=== PATIENT | female | born 1980 | race Caucasian/White ===

== ENCOUNTER → 2017-02-14 14:30 | Observation (INO) ==
--- NOTE | 2017-02-14 12:23 | OB/GYN History & Physical ---
Date of Encounter: 02/14/17 Time of Encounter: 12:21 Assessment and Plan (1) 36 weeks gestation of Current visit: Yes Status: Acute Admit for monitoring and evaluation (2) Single umbilical artery Current visit: Yes Status: Acute Patient is getting weekly NST's (3) Advanced maternal age (AMA) in Current visit: Yes Status: Acute Routine care (4) Hematuria Current visit: Yes Status: Acute Catheter urine specimen obtained Pt denies history of kidney stones No CVA tenderness on exam. Qualifiers: Hematuria type: gross Qualified Code(s): R31.0 - Gross hematuria History of Present Illness Chief complaint: 36w1d sent from office for bleeding HPI: Ms. Roblero is a 36 year old female Past Med Surg Social Fam HX - Past Medical History Medical history: other Psychiatric history: no psych history - Past Surgical History Surgical History: - Social History Smoking Status: Never smoker Smokeless Tobacco Status: No Alcohol use: none Drug use: none - Family History Mother Living Status: Still Living Hx Family Cardiac Disorders: No Hx Family Respiratory Disorders: No Hx Family Cancer: No Hx Family GI Disorders: No Hx Family Genitourinary Disorders: No Hx Family Endocrine Disorder: No Hx Family Musculoskeletal Disorders: No Hx Family Neuromuscular Disorders: No Hx Family Neurologic Disorders: No Hx Family HEENT Disorders: No Hx Family Autoimmune Disorders: No Hx Family Reproductive Disorders: No Hx Family Psychosocial Disorders: No Hx Family Medical Disorders: No Obstetrical History - Pregnancies : 4 Para: 3 Term: 3 : 0 Ab's: 0 Livin Medications and Allergies Fexofenadine/Pseudoephedrine [Melanie-D 12 Hour Tablet] 1 each PO DAILY [History] Vit Calc,Iron,Folic [ Vitamins] 1 tab PO DAILY 02/14/17 [ History] Exam - Constitutional Constitutional: well developed, well nourished, no acute distress - Neck Neck exam: full ROM, normal inspection - Lungs Respiratory exam: CTAB - Cardiovascular Cardiovascular exam: RRR, +S1, +S2 - Abdomen Abdomen: Present: bowel sounds normal, gravid, non tender - Extremities Extremities exam: full ROM, normal capillary refill, normal inspection - Vulva Vulva: bilateral: normal - Vagina Vagina: Present: normal moisture - Cervix Cervix: Present: discharge (normal vaginal discharge) - Uterus Uterus exam: Present: normal size - Anus/Rectum Anus/Rectum: Present: normal perianal skin - Comments Comments: Johanny is a 36 year old at 36w1d sent from office for bleeding. Patient states she had urinated multiple times at the office but the last time she noticed it was bloody. Dr Garcia sent here for evaluation. Pt reports positive movement, denies LOF, unsure if bleeding is vaginal or urinary. Denies pain and history of kidney stones. x 3, scheduled for a repeat c/s with tubal. Patient having weekly NST's for 2 vessel cord and AMA. Pt last ate at 0730 today. FHR 140 bpm, moderate variability, +15x15 accels, no decels. Category I tracing. Blood type A+ Rubella Immune Varicella Immune HbSAG negative GBS negative Results All other labs normal. - VTE Reasons for not Prescribing Prophylaxis: Treatment not Indicated - Low risk for VTE
[2017-02-14 12:44] LABS: Bilirubin,Urine Negative (Negative); Blood,Urine Moderate (Negative); Glucose,Urine (UA) Normal (Normal); Ketones,Urine Negative (Negative); Leukocyte Esterase,Urine Negative (Negative); Nitrite,Urine Negative (Negative); Protein,Urine Trace mg/dL (Neg-Trace); Specific Gravity,Urine 1.014 (1.010-1.025); Urobilinogen,Urine Normal (Normal)
[2017-02-14 12:45] LABS: Amphetamine Screen,Urine Negative ng/mL (Cutoff=1000); Barbiturate Screen,Urine Negative ng/mL (Cutoff=200); Benzodiazepines Screen,Urine Negative ng/mL (Cutoff=200); Cannabinoid Screen,Urine Negative ng/mL (Cutoff = 50); Cocaine Screen,Urine Negative ng/mL (Cutoff= 300); Opiate Screen,Urine Negative ng/mL (Cutoff=300); Phencyclidine Screen,Urine Negative ng/mL (Cutoff=25)
[2017-02-14 12:46] LABS: Clarity,Urine Slightly Hazy (Clear); Color,Urine Red (Yellow)
--- NOTE | 2017-02-14 14:21 | Discharge Summary ---
Date of Encounter: 02/14/17 Time of Encounter: 14:21 - Discharge Diagnosis (1) 36 weeks gestation of Priority: Primary Status: Acute (2) Single umbilical artery Priority: Secondary Status: Acute (3) Advanced maternal age (AMA) in Priority: Secondary Status: Acute (4) Hematuria Priority: Primary Status: Acute Comments: Discussed patient with Dr. Orourke Plan to discharge home and follow up as scheduled Qualifiers: Hematuria type: gross Qualified Code(s): R31.0 - Gross hematuria (5) NST (non-stress test) reactive on surveillance Priority: Secondary Status: Acute Comments: baseline 145 bpm moderate variability +15x15 accels no decels noted. - Discharge Medications Home Medications: Fexofenadine/Pseudoephedrine [Melanie-D 12 Hour Tablet] 1 each PO DAILY [History] Vit Calc,Iron,Folic [ Vitamins] 1 tab PO DAILY 02/14/17 [ History] Data Procedures and tests throughout hospitalization: Laboratory Tests 02/14/17 02/14/17 12:25 12:25 Ur Specimen Adequacy See below A Urine Color Red A Urine Clarity Slightly Hazy Urine pH 7.0 Ur Specific [place] 1.014 Urine Protein Trace Urine Glucose (UA) Normal Urine Ketones Negative Urine Blood Moderate H Urine Nitrite Negative Urine Bilirubin Negative Urine Urobilinogen Normal Ur Leukocyte Esterase Negative Ur Culture Indicated? NO Urine Opiates Screen Negative Ur Barbiturates Screen Negative Ur Phencyclidine Scrn Negative Ur Amphetamines Screen Negative U Benzodiazepines Scrn Negative Urine Cocaine Screen Negative U Marijuana (THC) Screen Negative Labs on day of discharge: Labs from last 24 hours 02/14/17 02/14/17 12:25 12:25 Ur Specimen Adequacy See below A Urine Color Red A Urine Clarity Slightly Hazy Urine pH 7.0 Ur Specific [place] 1.014 Urine Protein Trace Urine Glucose (UA) Normal Urine Ketones Negative Urine Blood Moderate H Urine Nitrite Negative Urine Bilirubin Negative Urine Urobilinogen Normal Ur Leukocyte Esterase Negative Ur Culture Indicated? NO Urine Opiates Screen Negative Ur Barbiturates Screen Negative Ur Phencyclidine Scrn Negative Ur Amphetamines Screen Negative U Benzodiazepines Scrn Negative Urine Cocaine Screen Negative U Marijuana (THC) Screen Negative Date of admission: 02/14/17 11:37 Primary care physician: Rafia Logan, Discharging clinician: Reta Mendez Anticipated date of discharge: 02/14/17 - Patient Status Disposition: Home, Self-Care Condition: Good Functional capacity at discharge: independent ambulation - Discharge Instructions Follow Up With: Rafia Logan CNP [Primary Care Provider] - Pepe Burrell MD [Partnered Physician] - - Diet and Activity Activity: increase activity as tolerated Diet: regular diet Hospital Course ASSOCIATE PATHOLOGIST Time Attestation: Total time spent providing and/or coordinating discharge services: Time Spent: Less than 30 minutes Exam - Constitutional General appearance IM: A&O X 3, pleasant, answers questions appropriately - Other Additional findings: FHR 145 bpm moderate variability +15x15 accels no decels noted. Cat 1 tracing. - VTE Reasons for not Prescribing Prophylaxis: Treatment not Indicated - Low risk for VTE
== END | disposition home or self-care (01) ==
LOC: 1NENULAB
PROVIDERS: ADMIT Obstetrics & Gynecology; ATTEND Obstetrics & Gynecology

== ENCOUNTER 2017-02-20 10:48 | Observation (INO) ==
[2017-02-20 10:29] LABS: Bilirubin,Urine Negative (Negative); Blood,Urine Negative (Negative); Clarity,Urine Cloudy (Clear); Color,Urine Yellow (Yellow); Glucose,Urine (UA) Normal (Normal); Ketones,Urine Negative (Negative); Leukocyte Esterase,Urine Negative (Negative); Nitrite,Urine Negative (Negative); PH,Urine 6.5 pH Units (5.0-8.0); Protein,Urine Negative (Neg-Trace); Specific Gravity,Urine 1.019 (1.010-1.025); Urobilinogen,Urine Normal (Normal)
[2017-02-20 10:36] LABS: Bacteria,Urine None Seen per hpf (None-Few); Hyaline Casts,Urine None Seen per lpf (None-Few); RBC,Urine 0-3 per hpf (0-3)
[2017-02-20 10:39] LABS: Amphetamine Screen,Urine Negative ng/mL (Cutoff=1000); Barbiturate Screen,Urine Negative ng/mL (Cutoff=200); Benzodiazepines Screen,Urine Negative ng/mL (Cutoff=200); Cannabinoid Screen,Urine Negative ng/mL (Cutoff = 50); Cocaine Screen,Urine Negative ng/mL (Cutoff= 300); Opiate Screen,Urine Positive ng/mL (Cutoff=300); Phencyclidine Screen,Urine Negative ng/mL (Cutoff=25)
[2017-02-20 10:47] LABS: Squamous Epithelial Cell,Urine Few per lpf (None-Few)
[~2017-02-20 10:48] MED LIST: *HR* HYDROmorphone (PF) 1 MG/ML SYRINGE IVP PRN; Ringers Solution, Lactated 1,000 ML IVC SCH; Ringers Solution, Lactated 1,000 ML ONE
[2017-02-20] MEDS ORDERED: *HR* HYDROmorphone (PF) 1 MG/ML SYRINGE ONE (10:49)
--- NOTE | 2017-02-20 10:57 | OB/GYN History & Physical ---
Date of Encounter: 02/20/17 Time of Encounter: 10:30 Assessment and Plan (1) Right flank pain Current visit: Yes Status: Acute Plan for possible if patient's condition doesn't improve. -NST assessment. - UA - Retroperitoneal ultrasound. - Dilaudid for pain control. - IVF - BMP - CBC (2) 37 weeks gestation of Current visit: Yes Status: Acute History of Present Illness Chief complaint: R flank pain HPI: Ms. Roblero is a 36 year old female at 37 wks gestation with a PMH of B/L nephrolithiasis, PIH, hypothyroidism, and previous that presents for R flank pain. Pt admitted over the weekeend for kidney stones. She presents today for R flank pain that started 0100 am in the morning. She said she was taking [place] and tylenol since the onset of the pain, but that it has not helped. She rates the pain as a 10/10, but she currently rates it as a 7/10. She says the plain is only on the R flank side. She denies any nausea or vomiting. She denies any hematuria. She denies headaches, shortness of breath, or chest pain. She says that she feels good movement. She denies loss of vaginal fluid or bleeding. She denies any contractions. Discharge US showed: Mild dilation of the right renal collecting system with Bilateral ureteral jets. Bilateral Non-onbstructing renal calcui were suspected. GBS: negative HepBSAb: non-reactive (08/16/16) HIV Ag/Ab: non-reactive T. pallidum: negative Rubella Ab: positive Varicella Ab: positive Blood type: A+ Past Med Surg Social Fam HX - Past Medical History Medical history: no medical history Psychiatric history: no psych history - Past Surgical History Surgical History: - Social History Smoking Status: Never smoker Smokeless Tobacco Status: No Alcohol use: none Drug use: none - Family History Mother History Unknown: Yes Adopted: No Living Status: Still Living Hx Family Cardiac Disorders: No Hx Family Respiratory Disorders: No Hx Family Cancer: No Hx Family GI Disorders: No Hx Family Endocrine Disorder: No Hx Family Neuromuscular Disorders: No Hx Family Neurologic Disorders: No Hx Family HEENT Disorders: No Hx Family Autoimmune Disorders: No Obstetrical History - Pregnancies : 4 Para: 3 Term: 3 : 0 Ab's: 0 Livin Medications and Allergies Fexofenadine/Pseudoephedrine [Melanie-D 12 Hour Tablet] 1 each PO DAILY [History] Vit Calc,Iron,Folic [ Vitamins] 1 tab PO DAILY 02/14/17 [ History] Acetaminophen [Tylenol] 650 mg PO Q6H PRN #120 tablet 02/17/17 [Rx] HYDROcodone/Acet 5/325 mg [[place] 5-325 mg] 1 tab PO Q6HR PRN #28 tablet [Rx] 3 Allergy/AdvReac Type Severity Reaction Status Date / Time No Known Allergies Allergy Verified 02/15/17 13:45 Exam - Vital Signs Vital signs: BP: 148/75 HR: 72 FHR: 155 [place]: 45 - Constitutional Constitutional: well developed, well nourished, average body habitus, moderate distress - Neck Neck exam: full ROM - Lungs Respiratory exam: CTAB - Cardiovascular Cardiovascular exam: RRR, +S1, +S2 - Abdomen Abdomen: Present: bowel sounds normal, gravid, non tender - Extremities Extremities exam: full ROM, normal inspection, radial pulses palpable and symmetrical Deep Tendon Reflex Grade: 2+ Normal - Comments Comments: Back: positive significant R CVA tenderness. Results Result Diagrams: 02/20/17 11:00 Abnormal lab results Urine Clarity Cloudy (Clear) A 02/20/17 09:50 All other labs normal. - VTE Reasons for not Prescribing Prophylaxis: Treatment not Indicated - Low risk for VTE
[2017-02-20 11:08] LABS: Basophils % 0.3 %; Eosinophils # 0.1 K/mcL (0.0-0.6); Eosinophils % 0.5 %; Hematocrit 33.1 % (35.3-44.9); Hemoglobin 10.8 g/dL (11.5-15.4); Immature Granulocytes % 0.8 % (0-4); Immature Platelets 8.6 % (1.1-6.1); Lymphocytes # 1.6 K/mcL (0.6-4.6); Lymphocytes % 13.8 %; Mean Corpuscular HGB Conc 32.6 g/dL (31.6-35.5); Mean Corpuscular Hemoglobin 28.7 pg (28.0-33.3); Mean Platelet Volume 11.8 fL (9.4-12.4); Monocytes # 0.6 K/mcL (0.0-1.3); Monocytes % 5.1 %; Neutrophils # 9.4 K/mcL (1.6-8.9); Platelet Count 153 K/mcL (140-400); Red Blood Count 3.76 M/mcL (3.82-4.97); Red Cell Distribution Width 14.6 % (11.5-14.5); Segmented Neutrophils % 79.5 %
[2017-02-20 11:27] LABS: BUN/Creatinine Ratio 12 (6-26); Blood Urea Nitrogen 7 mg/dL (7-20); Calcium 8.6 mg/dL (8.6-10.8); Carbon Dioxide 22 mEq/L (19-29); Chloride 107 mEq/L (98-109); Glucose 91 mg/dL (70-99); Osmolality,Calculated 280 (280-300); Potassium 3.5 mEq/L (3.5-4.5); Sodium 136 mEq/L (136-145); eGFR For African Americans > 60 (> 60); eGFR For Non-African Americans > 60 (> 60)
--- NOTE | 2017-02-20 16:46 | OB/GYN Progress Note ---
Date of Encounter: 02/20/17 Time of Encounter: 16:44 - Assessment and Plan (1) Right flank pain Current Visit: Yes Status: Acute Plan for possible if patient's condition doesn't improve. -NST assessment. - UA - Retroperitoneal ultrasound. - Dilaudid for pain control. - IVF - BMP - CBC (2) 37 weeks gestation of Current Visit: Yes Status: Acute (3) Bilateral nephrolithiasis Current Visit: No Status: Acute Pt with improvement in pain. Now pain max is 4/10 and well managed. US shows: IMPRESSION: 1. 9 mm calculus in the posterior right bladder, likely recently passed from the right kidney. 2. Mild right hydronephrosis, decreased from the previous examination, and now within normal limits given the gravid uterus. 3. Small nonobstructing intrarenal calculi. Also noted to have slighly elevated blood pressures, and they appear related to patient pain. Urine negative for protein on UA. Pt with follow up appointment with Indra in AM and will have BP recheck to rule out gestational hypertension. Discussed with Dr. Orourke. Discharged to home with [place] for pain management and when to return to triage precautions. Subjective - Subjective Interval history: Pain improved. Objective - Vital Signs Vital Signs: Intake and Output 02/20/17 02/20/17 02/20/17 07:59 15:59 23:59 Other: Weight 106.2 kg Patient Weight 02/20/17 23:59 Weight 106.2 kg - Exam FHR: auscultation normal FHR comments: baseline 130 Auscultation: bilateral: normal Abdomen: Present: normal appearance, soft, gravid Uterus: Present: normal Comments: + R CVA tenderness - Labs Labs: Abnormal lab results WBC 11.8 K/mcL (4.3-11.1) H 02/20/17 11:00 RBC 3.76 M/mcL (3.82-4.97) L 02/20/17 11:00 Hgb 10.8 g/dL (11.5-15.4) L 02/20/17 11:00 Hct 33.1 % (35.3-44.9) L 02/20/17 11:00 RDW 14.6 % (11.5-14.5) H 02/20/17 11:00 Neutrophils # 9.4 K/mcL (1.6-8.9) H 02/20/17 11:00 Immature Plt Fraction 8.6 % (1.1-6.1) H 02/20/17 11:00 Urine Clarity Cloudy (Clear) A 02/20/17 09:50 Urine Microscopic WBC 3-5 per hpf (0-3) H 02/20/17 09:50 Urine Opiates Screen Positive ng/mL (Tlucwo=432) H 02/20/17 09:50
== END 2017-02-20 16:52 | disposition home or self-care (01) ==
LOC: 1NENULAB
PROVIDERS: ADMIT Obstetrics & Gynecology; ATTEND Obstetrics & Gynecology

== ENCOUNTER → 2017-02-24 09:22 | Observation (INO) ==
[2017-02-23 23:47] LABS: Basophils % 0.2 %; Eosinophils # 0.1 K/mcL (0.0-0.6); Eosinophils % 0.6 %; Hematocrit 34.8 % (35.3-44.9); Hemoglobin 11.4 g/dL (11.5-15.4); Immature Granulocytes % 0.7 % (0-4); Lymphocytes # 2.1 K/mcL (0.6-4.6); Lymphocytes % 14.6 %; Mean Corpuscular HGB Conc 32.8 g/dL (31.6-35.5); Mean Corpuscular Hemoglobin 28.9 pg (28.0-33.3); Mean Corpuscular Volume 88.3 fL (83.0-100.0); Mean Platelet Volume 11.5 fL (9.4-12.4); Monocytes % 6.8 %; Platelet Count 154 K/mcL (140-400); Red Blood Count 3.94 M/mcL (3.82-4.97); Red Cell Distribution Width 14.6 % (11.5-14.5); Segmented Neutrophils % 77.1 %
--- NOTE | 2017-02-24 01:15 | OB/GYN History & Physical ---
Date of Encounter: 02/24/17 Time of Encounter: 01:12 Assessment and Plan (1) 37 weeks gestation of Current visit: Yes Status: Acute (2) Bilateral nephrolithiasis Current visit: Yes Status: Acute Pt with known bilateral nephrolithiasis and multiple recent admissions for rt flank pain. She tried [place] at home and continued to have excruciating pain. She presented and passed 3 mm stone into toilet. Will admit for IVF and will give Dilaudid 1mg IV as this in the past has provided 2-3 days of reliefe. (3) Right flank pain Current visit: Yes Status: Acute History of Present Illness Chief complaint: flank pain HPI: Ms. Roblero is a 36 year old female female at 37weeks and 4 days gestation with multiple recent admissions for kidney stones presents with c/o sudden onset of excruciating right flank pain this evening. She has been having lower grade constant flank pain but it became acutely worse this pm and her [place] wouldn't touch the pain. Upon arrival she passed about a 3mm stone into the toilet. The pain has now resolved some but she still c/o discomfort with voiding. She denies gross hematuria. She denies fever or chills. She denies regular uc's, vb or lof. Her preg has been complicated by 2 vc and AMA. She had normal free cell DNA and level 2 u/s. She is hypothyroid with recent normal labs. Past Med Surg Social Fam HX - Past Medical History Source: patient, old records reviewed Medical history: no medical history Psychiatric history: no psych history - Past Surgical History Surgical History: , other - Social History Smoking Status: Never smoker Smokeless Tobacco Status: No Alcohol use: none Drug use: none - Family History Mother Adopted: No Living Status: Still Living Hx Family Cardiac Disorders: No Hx Family Respiratory Disorders: No Hx Family Cancer: No Hx Family GI Disorders: No Hx Family Genitourinary Disorders: No Hx Family Endocrine Disorder: No Hx Family Musculoskeletal Disorders: No Hx Family Neuromuscular Disorders: No Hx Family Neurologic Disorders: No Hx Family HEENT Disorders: No Hx Family Autoimmune Disorders: No Hx Family Reproductive Disorders: No Hx Family Psychosocial Disorders: No Hx Family Medical Disorders: No Obstetrical History - Pregnancies : 4 Para: 3 Medications and Allergies Fexofenadine/Pseudoephedrine [Melanie-D 12 Hour Tablet] 1 each PO DAILY [History] Vit Calc,Iron,Folic [ Vitamins] 1 tab PO DAILY 02/14/17 [ History] Acetaminophen [Tylenol] 650 mg PO Q6H PRN #120 tablet 02/17/17 [Rx] HYDROcodone/Acet 5/325 mg [[place] 5-325 mg] 1 tab PO Q6HR PRN #28 tablet [Rx] 3 Allergy/AdvReac Type Severity Reaction Status Date / Time No Known Allergies Allergy Verified 02/15/17 13:45 Exam - Constitutional Constitutional: moderate distress - HEENT HEENT: EOMI, PERRL - Lungs Respiratory exam: CTAB - Cardiovascular Cardiovascular exam: RRR - Breasts Breast: bilateral: normal - Abdomen Abdomen: Present: gravid, non tender - Extremities Extremities exam: full ROM Deep Tendon Reflex Grade: 2+ Normal - Comments Comments: Right CVAT Results Result Diagrams: 02/23/17 23:40 Abnormal lab results WBC 14.2 K/mcL (4.3-11.1) H 02/23/17 23:40 Hgb 11.4 g/dL (11.5-15.4) L 02/23/17 23:40 Hct 34.8 % (35.3-44.9) L 02/23/17 23:40 RDW 14.6 % (11.5-14.5) H 02/23/17 23:40 Neutrophils # 11.0 K/mcL (1.6-8.9) H 02/23/17 23:40 All other labs normal.
--- NOTE | 2017-02-24 07:06 | OB Labor Progress Note ---
Date of Encounter: 02/24/17 Time of Encounter: 07:05 Labor Progress Note - Subjective Subjective: Feeling much better. Back pain much improved. + GFM, no vb or lof - Heart Tones Heart Tones: RNST - [place]: No UC's - Plan Plan: Will D/C home.
[~2017-02-24 09:22] MED LIST changes: -Ringers Solution, Lactated 1,000 ML IVC SCH; +Ringers Solution, Lactated 500 ML IVC ONE
== END | disposition home or self-care (01) ==
LOC: 1NENULAB
PROVIDERS: ADMIT Obstetrics & Gynecology; ATTEND Obstetrics & Gynecology

== ENCOUNTER 2017-03-06 05:37 | Inpatient (IN) ==
[2017-03-06] MEDS ORDERED: Metoclopramide 10 MG/2 ML VIAL IVP PRN ×2 (06:14→14:03)
[2017-03-06] MEDS ORDERED: Ondansetron 4 MG/2 ML VIAL IVP PRN ×4 (06:14→14:03)
[2017-03-06] MEDS ORDERED: Famotidine 20 MG/2 ML VIAL IVP PRN (06:14)
[2017-03-06] MEDS ORDERED: *HR* Nalbuphine 20 MG/ML AMPUL IVP PRN (06:14)
[2017-03-06] MEDS ORDERED: Naloxone 0.4 MG/ML INJ IVP PRN (06:14)
[2017-03-06] MEDS ORDERED: Ringers Solution, Lactated 1,000 ML IVC SCH (06:15)
[2017-03-06] MEDS ORDERED: Oxytocin 20 units/ LR 1000 mL 20 UNIT/1,000 ML BAG IVC ONE (06:21)
[2017-03-06] MEDS ORDERED: CeFAZolin Premix DUPLEX 2,000 MG/50 ML BAG IVPB ONE (06:21)
[2017-03-06] MEDS ORDERED: Ringers Solution, Lactated 1,000 ML ONE (06:30)
[2017-03-06 06:32] LABS: Basophils % 0.2 %; Eosinophils # 0.1 K/mcL (0.0-0.6); Eosinophils % 0.7 %; Hematocrit 35.7 % (35.3-44.9); Hemoglobin 11.7 g/dL (11.5-15.4); Lymphocytes # 2.2 K/mcL (0.6-4.6); Lymphocytes % 16.7 %; Mean Corpuscular HGB Conc 32.8 g/dL (31.6-35.5); Mean Corpuscular Hemoglobin 28.2 pg (28.0-33.3); Mean Platelet Volume 11.8 fL (9.4-12.4); Monocytes # 0.8 K/mcL (0.0-1.3); Platelet Count 171 K/mcL (140-400); Red Blood Count 4.15 M/mcL (3.82-4.97); Red Cell Distribution Width 15.3 % (11.5-14.5); Segmented Neutrophils % 75.4 %
--- NOTE | 2017-03-06 07:09 | OB/GYN History & Physical ---
Date of Encounter: 03/06/17 Time of Encounter: 06:50 Assessment and Plan (1) 39 weeks gestation of Current visit: Yes Status: Acute Patient will be admitted for scheduled repeat - Cefazolin for prophylalxis. - IV fluids. - Oxytocin. - Epidural consult - NST assessment. - NPO - Pepcid. History of Present Illness Chief complaint: Scheduled HPI: Ms. Roblero is a 36 year old female at 39 0/7 weeks gestation with a PMH of hypothyroidism, PIH, and recent nephrolithiasis that presents for a repeat c- section. She admits to good movement. She denies any vaginal fluid leakage or bleeding. She denies contractions, RINCON, vision changes chest pain, fever, chills, nausea, vomiting, dysuria, or diarrhea. GBS: negative HepBSAg: non-reactive (08/16/16) HIV Ag/Ab: non-reactive T. Pallidum Ab: negative Rubella Ab: positive Varicella Ab: positive Blood Type: A+ All other labs normal. Past Med Surg Social Fam HX - Past Medical History Medical history: other Psychiatric history: no psych history - Past Surgical History Surgical History: , other - Social History Smoking Status: Never smoker Smokeless Tobacco Status: No Alcohol use: none Drug use: none - Family History Mother Adopted: No Family Member Ethnicity: Non- Living Status: Still Living Hx Family Cardiac Disorders: No Hx Family Respiratory Disorders: No Hx Family Cancer: No Hx Family GI Disorders: No Hx Family Genitourinary Disorders: No Hx Family Endocrine Disorder: No Hx Family Musculoskeletal Disorders: No Hx Family Neuromuscular Disorders: No Hx Family Neurologic Disorders: No Hx Family HEENT Disorders: No Hx Family Autoimmune Disorders: No Hx Family Reproductive Disorders: No Hx Family Psychosocial Disorders: No Hx Family Medical Disorders: No Obstetrical History - Pregnancies : 4 Para: 3 Term: 3 : 0 Ab's: 0 Livin Medications and Allergies Vit Calc,Iron,Folic [ Vitamins] 1 tab PO DAILY 02/14/17 [ History] HYDROcodone/Acet 5/325 mg [[place] 5-325 mg] 1 tab PO Q6HR PRN #28 tablet [Rx] 3 Allergy/AdvReac Type Severity Reaction Status Date / Time No Known Allergies Allergy Verified 03/06/17 06:06 Exam - Vital Signs Vital signs: BP: 135/82 HR: 83 FHR: 161 [place]: 78 - Constitutional Constitutional: well developed, well nourished, no acute distress - Lungs Respiratory exam: CTAB - Cardiovascular Cardiovascular exam: RRR, +S1, +S2 - Abdomen Abdomen: Present: bowel sounds normal, gravid, non tender - Extremities Extremities exam: full ROM, normal capillary refill, normal inspection, radial pulses palpable and symmetrical Deep Tendon Reflex Grade: 2+ Normal Results Result Diagrams: 03/06/17 06:15 Abnormal lab results WBC 13.2 K/mcL (4.3-11.1) H 03/06/17 06:15 RDW 15.3 % (11.5-14.5) H 03/06/17 06:15 Neutrophils # 10.0 K/mcL (1.6-8.9) H 03/06/17 06:15 All other labs normal. - VTE Reasons for not Prescribing Prophylaxis: Treatment not Indicated - Low risk for VTE
--- NOTE | 2017-03-06 07:24 | Anesthesia Evaluation PreOp ---
Date of Encounter: 03/06/17 Time of Encounter: 07:10 - Past History Planned Operation: Repeat C/S Cardiac History: Denies any Significant Hx Pulmonary History: Denies Any Significant HX CHART WRITER History: Denies Any Significant HX Other Medical History: Denies Any Significant HX Anesthesia History: No Prior Anesthetic Complications, Past Anesthesia (C- sections x 3, Breast Augmentation) : Yes (term IUP) Alcohol Use: none Drug use: none Medications and Allergies Vit Calc,Iron,Folic [ Vitamins] 1 tab PO DAILY 02/14/17 [ History] HYDROcodone/Acet 5/325 mg [[place] 5-325 mg] 1 tab PO Q6HR PRN #28 tablet [Rx] 3 Allergy/AdvReac Type Severity Reaction Status Date / Time No Known Allergies Allergy Verified 03/06/17 06:06 - Meds/Allergy Pre-op Review Medications Reviewed: Yes Allergies Reviewed: Yes Beta Blockers on Current Med List: No Anesthesia Results - Labs 03/06/17 06:15 Anesthesia Exam Intake and Output 03/05/17 03/05/17 03/06/17 15:59 23:59 07:59 Other: Weight 103 kg Patient Weight 03/06/17 23:59 Weight 103 kg Height: 5'6 Weight: 227# NPO (# of Hours): MNOc - HEENT Pupil (Motor): Pupils equal, EOMI Mallampati: II Teeth: Normal Oral Opening: Greater than 3 - CHART WRITER LOC: Oriented CHART WRITER Motor: Normal RUE, Normal LUE, Normal RLE, Normal LLE, Normal Face CHART WRITER Sensory: Normal: RUE, LUE, RLE, LLE, Face - Cardiac Rhythm: Regular Murmur: None - Pulmonary Breath Sounds: bilateral Clear Respiratory Effort: Symmetrical Anesthesia Assess/Plan ASA Score: 2 Modified [place] Scale for Level of Consciousness: Cooperative, oriented, and tranquil Anesthetic Plan: Regional Monitoring Plan: Standard Monitors Recovery Plan: PACU Anes Supervising Prov Stmt: Pt seen/evaluated, R&B discussed, questions answered and consent obtained .Krista Breen MD
[2017-03-06] MEDS ORDERED: *HR* Oxytocin 10 UNIT/ML VIAL IM ONE (08:34)
[2017-03-06] MEDS ORDERED: *HR* Phenylephrine 10 MG/ML VIAL ONE (08:34)
[2017-03-06] MEDS ORDERED: *HR* FentaNYL (PF) 100 MCG/2 ML VIAL ONE (08:34)
[2017-03-06] MEDS ORDERED: *HR* Morphine Sulfate/PF 5 MG/10 ML AMPUL ONE (08:34)
--- NOTE | 2017-03-06 08:39 | Anesthesia Procedures ---
Date of Encounter: 03/06/17 Time of Encounter: 08:37 Procedures: Anesthesia - Epidural/Spinal Patient ID/Chart reviewed: Yes Patient examined: Yes OB Eval: Gestational age: 39 OB Eval: : 4 OB Eval: Hx Para: 3 OB Eval: Dilated at (cm): 2 OB Eval: Contractions: Non-stressed pattern Consent Obtained: Yes Supplemental Oxygen: Nasal Cannula Supplemental Oxygen Rate (L/min): 3 Site Prep: Aseptic Technique, Sterile prep and drape, 0.5% Chlorhexidine/Alcohol Patient position: upright Local Anesthetic: Lidocaine 1% Amount of Local Anesthetic used: 3 Interspace Used: L2-L3 Loss of Resistance (JOSEPH): No Blood: No CSF: Yes Paresthesia: No Spinal Needle Gauge: 25 Spinal Dose: marcaine 12mg, duramorph 0.2mg, fentanyl 7 mcg,epi Procedure: aseptic, tolerated well, effective Vitals + FHT's: 160/72 100 16 fht 144
--- NOTE | 2017-03-06 09:34 | OB/GYN Procedure Note ---
Section - Date of procedure: 03/06/17 Preop diagnosis: desires repeat , desires sterilization Post-op diagnosis: same Procedure: section, repeat low transverse, bilateral tubal ligation Surgeon: Pepe Burrell Estimated blood loss (cc): 700 Anesthesiologist: Khushi Johns Installer Helper: Zaki Shaw Anesthesia Type: Spinal section complications: none Disposition: L&D Recovery Room Specimens: Placenta - (s) A Infant Delivery Date: 03/06/17 Delivery Time: 08:29 Presentation: vertex Position: OA Gender: Female Gram Weight: 4.255 kg at 1 minute: 8 at 5 minutes: 9 Shoulder Dystocia: not encountered Specimens collected: cord blood Placenta: uterine exploration Cord: 3 umbilical vessels - Narrative Narrative: Patient's 36-year-old female who is 4 para 3 here today for repeat section. She also desires permanent sterilization. She is aware of operative risks of both procedures permanence of tubal ligation and signed appropriate consent. Description procedure: Patient was taken operating room where spinal anesthesia was administered. She was prepped draped in usual sterile fashion bladder was drained of clear urine with Brandt catheter. Scalpel was used to make pain still skin incision which were sharply taken down the rectus fascia. Fascia was incised midline fascial incision was extended bilaterally. Plan was developed and rectus muscle next fascia laterally rectus muscles were divided and peritoneum was entered sharply. Bladder blade was placed. Lower uterine segment was quite thin I did see the baby through the lower uterine segment. Made a transverse uterine incision above where the previous scarring and thinning was and this was taken down to the membranes. Membranes were ruptured clear fluid and incision was extended bluntly bilaterally. was delivered from vertex presentation without incident. Cord was clamped and cut and infant was immediately vigorous. Apgars were 8 at 1 minute and 9 at 5 minutes. Placenta was delivered manually without difficulty and uterine cavity was massaged free of all residual tissue. Uterus then closed the Vicryl running lock stitch there is still some oozing so second imbricating layer was taken over the first. There is still some adhesions a separate [id number] stitches were taken to obtain hemostasis. Attention was then turned to the fascia there was some bleeding actually pumping bleeders from the rectus muscles on each side these were reapproximated with 0 Vicryl and hemostasis was ensured. Fascia was closed 0 Vicryl in running manner. Again irrigation was performed hemostasis was ensured skin edges reapproximated with 4-0 Vicryl. Then the procedure all sponge and instrument counts are correct patient was taken recovery in good condition.
[2017-03-06] MEDS: *HR* HYDROmorphone (PF) 1 MG/ML SYRINGE IVP PRN ×3 (10:25→11:30)
[2017-03-06] MEDS ORDERED: *HR* HYDROmorphone (PF) 1 MG/ML SYRINGE IVP PRN (12:24)
--- NOTE | 2017-03-06 12:29 | Anesthesia Evaluation Post Op ---
Date of Encounter: 03/06/17 Time of Encounter: 12:27 - Vital Signs Vital Signs: Vital Signs/O2 Sat, Most Current Temp Pulse Resp BP Pulse Ox 97.8 F 88 16 135/84 98 03/06/17 12:00 03/06/17 12:00 03/06/17 12:00 03/06/17 12:00 03/06/17 12:00 - Lungs Lungs: Clear Ascult./Percussion - Airway Airway: Non-obstructed - Cardiovascular Regular Rate - Mental Status Mental Status: Alert & Oriented, Answers Appropriately - Pain Pain Scale: 4 Pain Scale used: Numeric (1 - 10) - Nausea Vomiting Nausea Vomiting: Not Present - Hydration Hydration: NPO - Discharge PostOp Status: Transfer Patient to floor (VSS, dilaudid for pain, stable)
[2017-03-06] MEDS ORDERED: Sennosides 8.6 MG TABLET PO PRN (14:03)
[2017-03-06] MEDS ORDERED: Rho Immune Globulin 1,500 UNIT SYRINGE IM ONE (14:03)
[2017-03-06] MEDS ORDERED: Simethicone 80 MG TAB.CHEW PO PRN (14:03)
[2017-03-06] MEDS ORDERED: Oxytocin 20 units/ LR 1000 mL 20 UNIT/1,000 ML BAG IVC SCH (14:03)
[2017-03-06] MEDS: *HR* OxyCODONE/APAP 5/325 TABLET PO PRN ×2 (14:18→21:15)
[2017-03-06] MEDS: Oxytocin 20 units/ LR 1000 mL 20 UNIT/1,000 ML BAG IVC SCH ×2 (14:19→22:13)
[2017-03-07] MEDS: *HR* OxyCODONE/APAP 5/325 TABLET PO PRN ×5 (01:31→23:32)
[2017-03-07] MEDS: Ibuprofen 600 MG TABLET PO PRN ×4 (01:31→23:32)
[2017-03-07 07:15] LABS: Basophils % 0.1 %; Eosinophils # 0.1 K/mcL (0.0-0.6); Eosinophils % 0.5 %; Hematocrit 26.7 % (35.3-44.9); Hemoglobin 8.6 g/dL (11.5-15.4); Immature Granulocytes % 0.8 % (0-4); Lymphocytes # 1.4 K/mcL (0.6-4.6); Lymphocytes % 12.4 %; Mean Corpuscular HGB Conc 32.2 g/dL (31.6-35.5); Mean Corpuscular Hemoglobin 28.8 pg (28.0-33.3); Mean Corpuscular Volume 89.3 fL (83.0-100.0); Monocytes # 0.9 K/mcL (0.0-1.3); Monocytes % 7.8 %; Neutrophils # 8.6 K/mcL (1.6-8.9); Platelet Count 134 K/mcL (140-400); Red Blood Count 2.99 M/mcL (3.82-4.97); Red Cell Distribution Width 15.5 % (11.5-14.5); Segmented Neutrophils % 78.4 %
--- NOTE | 2017-03-07 08:31 | OB/GYN Progress Note ---
Date of Encounter: 03/07/17 Time of Encounter: 08:15 - Assessment and Plan (1) 39 weeks gestation of Current Visit: Yes Status: Resolved (2) Status post Current Visit: Yes Status: Acute Stable POD #1 continue current management plan Pain well controlled. Continue current pain meds. Anticipate DC tomorrow. (3) anemia Current Visit: Yes Status: Acute Hgb dropped from 11.7 to 8.6 since yesterday. - Continue to monitor. - Continue iron supplement. Subjective - Subjective Principal diagnosis: S/P Interval history: Patient says she is doing well today. She rates her abdominal pain as a 6/10. Her baby is currently in the nursery and had to have an IV put in do to low blood glucose. She has been bottle feeding the baby. She says she has a moderate amount of vaginal bleeding, but says it has been improving since the delivery. She has been able to ambulate independently. Her appetite is good. She has been able to void this morning since they took her toribio out. She does however state that she has not been able to pass gas yet. She denies RINCON, vision changes, chest pain, fever, chills, nausea, or vomiting. Patient reports: appetite normal, voiding normally, pain well controlled, ambulating normally : doing well, in NICU, bottle feeding Objective - Vital Signs Latest vital signs: Vital Signs Temp Pulse Resp BP Pulse Ox 03/07/17 08:21 97.9 F 98 12 134/81 98 03/07/17 03:30 98.6 F 90 18 129/78 99 03/06/17 23:29 98.7 F 104 18 128/83 98 03/06/17 19:40 98.2 F 104 16 141/89 98 03/06/17 16:30 97.9 F 102 20 142/78 98 03/06/17 15:00 97.7 F 100 20 143/102 98 03/06/17 14:28 97.9 F 100 20 136/88 99 03/06/17 14:00 98.0 F 119 14 152/97 97 03/06/17 13:02 97.9 F 90 20 122/84 98 03/06/17 12:30 98.1 F 90 20 120/82 98 03/06/17 12:00 97.8 F 88 16 135/84 98 Intake and Output 03/06/17 03/07/17 03/07/17 23:59 07:59 15:59 Intake Total 1360 / 1360 Output Total 900 / 900 900 / 900 Balance 460 / 460 -900 / -900 Intake: IV Fluids 1000 / 1000 Pitocin 20 unit In 1,000 ml @ 1000 / 1000 125 mls/hr IVC .Q8H [facility] Rx#: [id number] Oral 360 / 360 Output: Urine 600 / 600 900 / 900 Urethral (Toribio) 600 / 600 900 / 900 Catheter 300 / 300 Other: Meal Dinner Weight 102.512 kg Patient Weight 03/07/17 23:59 Weight 102.512 kg - Exam Lungs: bilateral: normal Chest: Normal S1, Normal S2 Extremities: Present: normal. Absent: edema Abdomen: Present: normal appearance, soft, tenderness Incision: Present: normal, edematous, dressed (R half of dressing had some bleeding. Area was marked. ) Uterus: Present: normal, firm - Labs Labs: Laboratory Results - last 24 hr 03/07/17 05:59 WBC 10.9 RBC 2.99 L Hgb 8.6 L D Hct 26.7 L MCV 89.3 MCH 28.8 MCHC 32.2 RDW 15.5 H Plt Count 134 L MPV 12.0 Immature Gran % 0.8 Seg Neutrophils % 78.4 Lymphocytes % 12.4 Monocytes % 7.8 Eosinophils % 0.5 Basophils % 0.1 Neutrophils # 8.6 Lymphocytes # 1.4 Monocytes # 0.9 Eosinophils # 0.1 Basophils # 0.0
[2017-03-07] MEDS ORDERED: Prenatal Vit/FA 1 EACH TABLET PO SCH (09:00)
[2017-03-08] MEDS: Ibuprofen 600 MG TABLET PO PRN (05:52)
[2017-03-08] MEDS: *HR* OxyCODONE/APAP 5/325 TABLET PO PRN (05:52)
[2017-03-08 06:06] LABS: Basophils % 0.2 %; Eosinophils # 0.1 K/mcL (0.0-0.6); Eosinophils % 1.1 %; Hematocrit 25.1 % (35.3-44.9); Immature Granulocytes % 1.4 % (0-4); Lymphocytes # 1.7 K/mcL (0.6-4.6); Lymphocytes % 17.6 %; Mean Corpuscular HGB Conc 31.9 g/dL (31.6-35.5); Mean Corpuscular Hemoglobin 28.7 pg (28.0-33.3); Mean Platelet Volume 11.4 fL (9.4-12.4); Monocytes # 0.7 K/mcL (0.0-1.3); Monocytes % 7.1 %; Neutrophils # 6.9 K/mcL (1.6-8.9); Platelet Count 139 K/mcL (140-400); Red Blood Count 2.79 M/mcL (3.82-4.97); Red Cell Distribution Width 15.5 % (11.5-14.5); Segmented Neutrophils % 72.6 %
[2017-03-08 08:58] VITALS: BP 131/79
--- NOTE | 2017-03-08 09:35 | Discharge Summary ---
Date of Encounter: 03/08/17 Time of Encounter: 09:32 - Discharge Diagnosis (1) S/P repeat low transverse Priority: Primary Status: Acute Comments: Continue routine postop/ care discharge home today follow up with Dr. Burrell in 2 weeks (2) Sterilization Priority: Secondary Status: Acute (3) Advanced maternal age (AMA) in Priority: Secondary Status: Chronic - Discharge Medications Prescriptions: OxyCODONE/APAP 5/325 [Percocet 5/325 MG] 1 each PO Q4HR PRN #30 tablet PRN Reason: Moderate pain 4-6 Ibuprofen [Motrin] 600 mg PO Q6HR PRN #60 tablet PRN Reason: Cramping Docusate [Colace] 100 mg PO BID #30 capsule Ferrous Sulfate 325 mg PO BID #60 tablet Home Medications: Vit Calc,Iron,Folic [ Vitamins] 1 tab PO DAILY 02/14/17 [ History] HYDROcodone/Acet 5/325 mg [[employer] 5-325 mg] 1 tab PO Q6HR PRN #28 tablet [Rx] Docusate [Colace] 100 mg PO BID #30 capsule 03/08/17 [Rx] Ferrous Sulfate 325 mg PO BID #60 tablet 03/08/17 [Rx] Ibuprofen [Motrin] 600 mg PO Q6HR PRN #60 tablet 03/08/17 [Rx] OxyCODONE/APAP 5/325 [Percocet 5/325 MG] 1 each PO Q4HR PRN #30 tablet 03/08/17 [Rx] Allergies/Adverse Reactions: 3 Allergy/AdvReac Type Severity Reaction Status Date / Time No Known Allergies Allergy Verified 03/06/17 06:06 Data Procedures and tests throughout hospitalization: Laboratory Tests 03/06/17 03/07/17 03/08/17 06:15 05:59 05:51 WBC 13.2 H 10.9 9.5 RBC 4.15 2.99 L 2.79 L Hgb 11.7 8.6 L D 8.0 L Hct 35.7 26.7 L 25.1 L MCV 86.0 89.3 90.0 MCH 28.2 28.8 28.7 MCHC 32.8 32.2 31.9 RDW 15.3 H 15.5 H 15.5 H Plt Count 171 134 L 139 L MPV 11.8 12.0 11.4 Immature Gran % 1.0 0.8 1.4 Seg Neutrophils % 75.4 78.4 72.6 Lymphocytes % 16.7 12.4 17.6 Monocytes % 6.0 7.8 7.1 Eosinophils % 0.7 0.5 1.1 Basophils % 0.2 0.1 0.2 Neutrophils # 10.0 H 8.6 6.9 Lymphocytes # 2.2 1.4 1.7 Monocytes # 0.8 0.9 0.7 Eosinophils # 0.1 0.1 0.1 Basophils # 0.0 0.0 0.0 [facility] report ran by Sonia Ramos MD Labs on day of discharge: Labs from last 24 hours 03/08/17 05:51 WBC 9.5 RBC 2.79 L Hgb 8.0 L Hct 25.1 L MCV 90.0 MCH 28.7 MCHC 31.9 RDW 15.5 H Plt Count 139 L MPV 11.4 Immature Gran % 1.4 Seg Neutrophils % 72.6 Lymphocytes % 17.6 Monocytes % 7.1 Eosinophils % 1.1 Basophils % 0.2 Neutrophils # 6.9 Lymphocytes # 1.7 Monocytes # 0.7 Eosinophils # 0.1 Basophils # 0.0 Date of admission: 03/06/17 05:37 Primary care physician: Rafia Logan, Discharging clinician: Reta Mendez Anticipated date of discharge: 03/08/17 - Patient Status Disposition: Home, Self-Care Condition: Good Functional capacity at discharge: independent ambulation Overall status at discharge: patient is progressing back to baseline - Discharge Instructions Follow Up With: Rafia Logan CNP [Primary Care Provider] - Pepe Burrell MD [Partnered Physician] - - Diet and Activity Activity: increase activity as tolerated Diet: advance to your usual diet Hospital Course Reason for admission: section Delivery: section Episiotomy: none Laceration: none Other procedures: tubal ligation complications: none Discharge diagnosis: IUP at term delivered [place] baby: female Hospital course: [facility] report was reviewed by Sonia Ramos MD. Patient was unable to be found in the [facility] system. Time Attestation: Total time spent providing and/or coordinating discharge services: Time Spent: Less than 30 minutes - VTE Reasons for not Prescribing Prophylaxis: Treatment not Indicated - Low risk for VTE Documentation of Mechanical Device: Intermittent pneumatic compression device - Attending Attestation I examined this patient and my medical decision-making was reviewed with the Resident Physician. I agree with the documented findings, disposition and treatment plan as described except to the extent set forth below. BENNETT Bahena Exam - Constitutional Vitals: Temp Pulse Resp BP Pulse Ox 97.9 F 101 16 131/79 98 03/08/17 07:30 03/08/17 07:30 03/08/17 07:30 03/08/17 07:30 03/07/17 21:10 General appearance IM: A&O X 3, no acute distress - Respiratory Respiratory exam: Present: CTAB. Absent: decreased breath sounds, prolonged expiratory phase, respiratory distress - Cardiovascular Cardiovascular exam IM: Present: RRR, +S1, +S2 - GI/Abdominal GI/Abdominal exam IM: normal bowel sounds, soft, tenderness (Mild lower quadrant tenderness), no peritoneal signs Incision: normal, dry, intact, dressed - Uterine Tone: Firm Uterus Position: 2 Fingers Below Umbilicus - Extremities Exam Extremities exam IM: Present: radial pulses palpable and symmetrical. Absent: calf tenderness, pedal edema - Neurological Exam Neurological exam: alert, oriented X3, no focal deficits
== END 2017-03-08 10:02 | disposition home or self-care (01) | DRG 766 ==
LOC: 1NENULAB 05:37 → 1NENUOBS 12:05
PROVIDERS: ADMIT Obstetrics & Gynecology; ATTEND Obstetrics & Gynecology